=== PATIENT | female | born 1980 | race Caucasian/White ===

== ENCOUNTER 2017-02-24 16:13 | Emergency (ER) | payer BC ==
[~2017-02-24] VITALS: Ht 162.6 cm; Wt 83.1 kg
[~2017-02-24 16:13] MED LIST: PRENTAB26 PO
[2017-02-24 16:29] VITALS: TEMP 36.9; Ht 162.6 cm; Wt 83.1 kg
[2017-02-24] MEDS ORDERED: MISCCAP80 PO (16:44)
[2017-02-24] MEDS ORDERED: MULT-506 PO (16:44)
[2017-02-24] MEDS ORDERED: RABIES IMMUNE GLOBULIN (HUMAN) 150 INTER.UNIT/ML 2 ML VIAL IM. ONE (17:00)
[2017-02-24] MEDS ORDERED: RABIES VACCINE (IMOVAX) HUMAN DIPL CELL 2.5 INTER.UNIT/ML SYR IM. ONE (17:00)
--- NOTE | 2017-02-24 17:17 | EMERGENCY ROOM VISIT NOTE ---
ED Visit Note First contact with patient: 16:35 CHIEF COMPLAINT: Possible rabies exposure HISTORY OF PRESENT ILLNESS: This 37-year-old female patient presents to the emergency department ambulatory. There is concern for rabies exposure as there was a bat in their house overnight. There was no known obvious bite or exposure. REVIEW OF SYSTEMS: A 6 system review of systems was completed with positives and pertinent negatives listed in the HPI. ALLERGIES: Penicillin MEDICATIONS: Vitamins PMH: Patient denies. SOCIAL HISTORY: The patient lives locally with family. PHYSICAL EXAM: Vital Signs: Reviewed Nurse's notes, vital signs stable. GENERAL : This 37-year-old female, in no acute distress, well-developed, well- nourished. HEAD: Atraumatic, without temporal or scalp tenderness. EYES: PERRLA, EOMI, no discharge or injection. SKIN: No obvious open area. Capillary refill less than 2 seconds. NEUROLOGICAL: Alert and oriented to person place and time. Normal sensation to light and sharp touch. MUSCULOSKELETAL: Motor functions grossly intact of the arms and legs. Full range of motion. EMERGENCY DEPARTMENT COURSE: I examined the patient. The patient was given RIG 20 Units/kg. The patient was given Imovax 1ml IM. The patient was observed for 20 minutes with no reaction. The patient was discharged home in stable condition. DIAGNOSIS: Rabies prophylaxis DISCHARGE INSTRUCTIONS: Today is day 0. Return to the ER on days 3, 7, 14 for subsequent vaccinations. Return sooner or follow up with your family doctor for signs of infection (increased redness, discharge, fever) or for complications with the vaccine series. 02/27 03/03 87 Current/Historical Medications Scheduled Multivitamin (Multivitamin), 1 TAB PO DAILY Probiotic Product (Probiotic), 1 CAP PO DAILY Allergies Coded Allergies: Penicillins (Verified Allergy, Unknown, PT WILL NOT TAKE PCN DUE TO FAMILY HX ALLERGY TO PCN, 02/24/17) Vital Signs Date Time Temp Pulse Resp B/P (MAP) Pulse Ox O2 Delivery O2 Flow Rate FiO2 02/24/17 19:00 76 18 119/79 96 02/24/17 16:29 36.9 94 20 99 Room Air Medications Administered Medications (Trade) Dose Ordered Sig/Fernando Route Start Time Stop Time Status Last Admin Dose Admin Rabies Vaccine Human Diploid Cell (Imovax Rabies) 2.5 interunit ONCE ONCE IM. 7/24/17 17:00 02/24/17 17:01 DC 02/24/17 17:00 2.5 INTERUNIT Rabies Immune Globulin (Imogam Rabies Inj) 1,660 interunit ONCE ONCE IM. 02/24/17 17:00 02/24/17 17:01 DC 02/24/17 17:00 1,660 INTERUNIT Departure Information Impression Primary Impression: Rabies, need for prophylactic vaccination against Dispostion Home / Self-Care Condition GOOD Referrals Frank Hanson M.D.([facility]) (PCP) Patient Instructions My [facility], Rabies Vaccine suspension for injection Additional Instructions Today is day 0. Return to the ER on days 3, 7, 14 for subsequent vaccinations. Return sooner or follow up with your family doctor for signs of infection (increased redness, discharge, fever) or for complications with the vaccine series. 02/27 03/03 03/10
[2017-02-24 19:00] VITALS: BP 119/79; PULSE 76; O2SAT 96
== END 2017-02-24 18:53 | disposition home or self-care (01) ==
LOC: C.EDB 16:15 → C.EDD 18:53
DX: Z20.3 Contact with and (suspected) exposure to rabies (principal); Z23 Encounter for immunization

== ENCOUNTER 2017-02-27 12:46 | Emergency (ER) | payer BC ==
[~2017-02-27] VITALS: Ht 162.6 cm; Wt 81.0 kg
[~2017-02-27 12:46] MED LIST changes: +MISCCAP80 PO; +MULT-506 PO; -PRENTAB26 PO
[2017-02-27 12:49] VITALS: TEMP 37; Ht 162.6 cm; Wt 81.0 kg
[2017-02-27] MEDS ORDERED: RABIES VACCINE (IMOVAX) HUMAN DIPL CELL 2.5 INTER.UNIT/ML SYR IM. ONE (13:45)
--- NOTE | 2017-02-27 14:10 | EMERGENCY ROOM VISIT NOTE ---
ED Visit Note First contact with patient: 13:08 CHIEF COMPLAINT: Rabies prophylaxis HISTORY OF PRESENT ILLNESS: This 37-year-old female patient presents to the emergency department with her daughter for their second rabies shot. The patient states last week, she found a bat in the house, and was uncertain if anybody in the family was bitten. The patient did get her first vaccination on Friday , 02/24/17. The patient has not had any complications from the previous injections. They deny any other complaints. REVIEW OF SYSTEMS: A 6 system review of systems was completed with positives and pertinent negatives listed in the HPI. ALLERGIES: Penicillin MEDICATIONS: Multivitamin, probiotic PMH: Unchanged from previous visit. PHYSICAL EXAM: Vital Signs: Reviewed Nurse's notes, vital signs stable. GENERAL : This is a 37-year-old female, in no acute distress, well-developed, well- nourished. HEAD: Atraumatic, without temporal or scalp tenderness. EYES: PERRLA, EOMI, no discharge or injection. SKIN: Normal. NEUROLOGICAL: Alert and cooperative. Sensory and motor functions grossly intact. EMERGENCY DEPARTMENT COURSE: I examined the patient. The patient was given Imovax 1ml IM. The patient was observed for 20 minutes with no reaction. The patient was discharged home in stable condition. DIFFERENTIAL DIAGNOSIS: Rabies infection, bat bite, medication adverse reaction , and others. DIAGNOSIS: Rabies prophylaxis DISCHARGE INSTRUCTIONS: Continue vaccination schedule as directed. Return for any complications. Current/Historical Medications Scheduled Multivitamin (Multivitamin), 1 TAB PO DAILY Probiotic Product (Probiotic), 1 CAP PO DAILY Allergies Coded Allergies: Penicillins (Verified Allergy, Unknown, PT WILL NOT TAKE PCN DUE TO FAMILY HX ALLERGY TO PCN, 02/24/17) Vital Signs Date Time Temp Pulse Resp B/P (MAP) Pulse Ox O2 Delivery O2 Flow Rate FiO2 02/27/17 12:49 37.0 85 18 125/81 96 Room Air Medications Administered Medications (Trade) Dose Ordered Sig/Fernando Route Start Time Stop Time Status Last Admin Dose Admin Rabies Vaccine Human Diploid Cell (Imovax Rabies) 2.5 interunit ONCE ONCE IM. 02/27/17 13:45 02/27/17 13:46 DC 02/27/17 13:48 2.5 INTERUNIT Departure Information Impression Primary Impression: Need for post exposure prophylaxis for rabies Dispostion Home / Self-Care Condition GOOD Referrals Frank Hanson M.D.([facility]) (PCP) Patient Instructions My [facility], Rabies Vaccine suspension for injection Additional Instructions Please continue vaccination schedule as previously outlined. You should return again on day 7. Please follow up sooner for any complications or reactions such as rash, chest pain, dyspnea, headache, dizziness, blurry vision, or other associated symptoms.
[2017-02-27 14:16] VITALS: BP 116/74; PULSE 88; O2SAT 98
== END 2017-02-27 14:17 | disposition home or self-care (01) ==
LOC: C.EDB 12:46 → C.EDD 14:17
DX: Z20.3 Contact with and (suspected) exposure to rabies (principal); Z23 Encounter for immunization

== ENCOUNTER 2017-03-04 00:06 | Emergency (ER) | payer BC ==
[~2017-03-04] VITALS: Ht 170.2 cm; Wt 83.0 kg
[2017-03-04 00:16] VITALS: Ht 170.2 cm; Wt 83.0 kg
--- NOTE | 2017-03-04 00:21 | EMERGENCY ROOM VISIT NOTE ---
ED Visit Note First contact with patient: 00:17 CHIEF COMPLAINT: Rabies prophylaxis HISTORY OF PRESENT ILLNESS: This 37 patient presents to the emergency department for their 3rd rabies shot. The patient has not had any complications from the previous injections. They deny any other complaints. REVIEW OF SYSTEMS: A 6 system review of systems was completed with positives and pertinent negatives listed in the HPI. ALLERGIES: Penicillin MEDICATIONS: Reviewed PMH: Unchanged from previous visit. PHYSICAL EXAM: Vital Signs: Reviewed Nurse's notes, vital signs stable. GENERAL : Pleasant female, in no acute distress, well-developed, well-nourished. HEAD: Atraumatic, without temporal or scalp tenderness. EYES: PERRLA, EOMI, no discharge or injection. SKIN: Normal. NEUROLOGICAL: Alert and cooperative. Sensory and motor functions grossly intact. EMERGENCY DEPARTMENT COURSE: I examined the patient. The patient was given rabies Imovax The patient was observed for 20 minutes with no reaction. The patient was discharged home in stable condition. DIAGNOSIS: Rabies prophylaxis DISCHARGE INSTRUCTIONS: Continue vaccination schedule as directed. Return for any complications. The last shot in your series is in 7 days. Current/Historical Medications Scheduled Multivitamin (Multivitamin), 1 TAB PO DAILY Probiotic Product (Probiotic), 1 CAP PO DAILY Allergies Coded Allergies: Penicillins (Verified Allergy, Unknown, PT WILL NOT TAKE PCN DUE TO FAMILY HX ALLERGY TO PCN, 02/24/17) Vital Signs Date Time Temp Pulse Resp B/P (MAP) Pulse Ox O2 Delivery O2 Flow Rate FiO2 03/04/17 00:16 37.1 77 16 111/71 99 Room Air Departure Information Referrals Frank Hanson M.D. ([facility]) (PCP) Patient Instructions My [facility]
[2017-03-04] MEDS ORDERED: RABIES VACCINE (IMOVAX) HUMAN DIPL CELL 2.5 INTER.UNIT/ML SYR IM. ONE (00:30)
[2017-03-04] MEDS ORDERED: BIOT800T2 PO (00:33)
[2017-03-04 00:34] VITALS: BP 111/71; PULSE 77; TEMP 37.1; O2SAT 99
== END 2017-03-04 00:35 | disposition home or self-care (01) ==
LOC: C.EDB 00:07 → C.EDC 00:35
DX: Z20.3 Contact with and (suspected) exposure to rabies (principal); Z23 Encounter for immunization

== ENCOUNTER 2017-03-10 13:25 | Emergency (ER) | payer BC ==
[~2017-03-10] VITALS: Ht 162.6 cm; Wt 83.0 kg
[~2017-03-10 13:25] MED LIST changes: +BIOT800T2 PO
[2017-03-10 13:26] VITALS: Ht 162.6 cm; Wt 83.0 kg
[2017-03-10] MEDS ORDERED: RABIES VACCINE (IMOVAX) HUMAN DIPL CELL 2.5 INTER.UNIT/ML SYR IM. ONE (13:30)
--- NOTE | 2017-03-10 13:40 | EMERGENCY ROOM VISIT NOTE ---
History First contact with patient: 13:29 Chief Complaint: RABIES VACCINE REPEAT VISIT Stated Complaint: RABIES VACCINE History of Present Illness The patient is a 37 year old female who presents to the Emergency Room for her fourth and final Imovax immunization. The patient was here 13 days ago for evaluation after awakening with a bat in the house. The patient denies any adverse reaction to her prior injections. Review of Systems 6 system review was performed and was negative except for pertinent positives and negatives as indicated in history of present illness Past Medical/Surgical History Well documented on initial visit which was reviewed Social History Smoking Status: Never Smoker Alcohol Use: occasionally Marital Status: Housing Status: lives with family Occupation Status: employed Current/Historical Medications Scheduled Biotin (Biotin), Unknown Dose PO DAILY Multivitamin (Multivitamin), 1 TAB PO DAILY Probiotic Product (Probiotic), 1 CAP PO DAILY Physical Exam Vital Signs Date Time Temp Pulse Resp B/P (MAP) Pulse Ox O2 Delivery O2 Flow Rate FiO2 03/10/17 13:26 36.7 72 16 113/78 97 Room Air Physical Exam CONSTITUTIONAL: Healthy and well nourished. HEENT: Normocephalic, atraumatic. Pupils equal, round and reactive. No scleral icterus or conjunctival injection/pallor. INTEGUMENTARY: No rash or other significant dermatologic conditions noted. NEUROLOGIC: No focal neurologic deficits noted. Medical Decision & Procedures ED Course Patient history and physical exam were performed. Nurse's notes were reviewed. Vital signs were reviewed and normal. The patient received Imovax without adverse reaction. The patient was advised that if she has any potential rabies exposure in the future, she should advise her healthcare provider that she has already undergone this immunization series. The patient voiced understanding of all discharge instructions, and denied any discomfort at the time of discharge. Medical Decision Medication Reconcilliation Current Medication List: was personally reviewed by ar Blood Pressure Screening Patient's blood pressure: Normal blood pressure Impression Primary Impression: Rabies, need for prophylactic vaccination against Departure Information Dispostion Home / Self-Care Forms HOME CARE DOCUMENTATION FORM, IMPORTANT VISIT INFORMATION Patient Instructions My [facility] Additional Instructions If you have any potential exposure to rabies in the future, advise your healthcare provider that you have already undergone this immunization series.
[2017-03-10 13:44] VITALS: BP 113/78; PULSE 72; TEMP 36.7; O2SAT 97
== END 2017-03-10 13:45 | disposition home or self-care (01) ==
LOC: C.EDB 13:26 → C.EDD 13:45
DX: Z20.3 Contact with and (suspected) exposure to rabies (principal); Z23 Encounter for immunization